=== PATIENT | male | born 1980 | race Caucasian/White ===

== ENCOUNTER 2022-09-21 09:33 | Day surgery (SDC) | payer SELFPAY ==
[2022-09-21] MEDS ORDERED: HYDROmorphone 1 MG/ML Syringe IM ONE (10:59)
[2022-09-21] MEDS ORDERED: Lactated Ringers 1,000 ML IV SCH (12:30)
[2022-09-21] MEDS ORDERED: Sodium Chloride 0.9% 20 ML SDV IV PRN (13:13)
[2022-09-21] MEDS ORDERED: Sodium Chloride 0.9% 10 ML Syringe FLUSH PRN (13:13)
[2022-09-21] MEDS ORDERED: Sodium Chloride 0.9% 2.5 ML Syringe FLUSH PRN (13:13)
[2022-09-21] MEDS ORDERED: Ondansetron 4 MG/2 ML SDV IVPUSH PRN (13:44)
[2022-09-21] MEDS ORDERED: Rocuronium Bromide 50 MG/5 ML Syringe ONE ×2 (13:44→16:02)
[2022-09-21] MEDS ORDERED: fentaNYL 50 MCG/ML SDV IVPUSH PRN (13:44)
[2022-09-21] MEDS ORDERED: Metoclopramide 10 MG/2 ML SDV IVPUSH PRN (13:44)
[2022-09-21] MEDS ORDERED: Morphine 2 MG/ML SYRINGE IVPUSH PRN (13:44)
[2022-09-21] MEDS ORDERED: Albuterol 0.083% 2.5 MG/3 ML Neb Soln NEB PRN (13:44)
[2022-09-21] MEDS ORDERED: Lidocaine 2% 5 ML SDV ONE (13:44)
[2022-09-21] MEDS ORDERED: Naloxone 0.4 MG/ML SDV IVPUSH PRN (13:44)
[2022-09-21] MEDS ORDERED: Propofol 200 MG/20 ML SDV ONE (13:44)
[2022-09-21] MEDS ORDERED: fentaNYL 100 MCG/2 ML SDV ONE (15:08)
[2022-09-21] MEDS ORDERED: Phenylephrine HCl In 0.9% NaCl 1 MG/10 ML Vial ONE (15:10)
[2022-09-21] MEDS ORDERED: Dexamethasone 4 MG/ML 5 ML MDV ONE (15:28)
[2022-09-21] MEDS ORDERED: Ondansetron 4 MG/2 ML SDV ONE (15:34)
[2022-09-21] MEDS ORDERED: Sugammadex Sodium 200 MG/2 ML VIAL ONE (15:34)
[2022-09-21] MEDS: HYDROmorphone 1 MG/ML Syringe IVPUSH PRN ×2 (16:50→17:13)
== END 2022-09-21 18:30 ==
LOC: MW.ED 09:33 → MW.MS 13:31 → MW.SDS 13:31
PROVIDERS: ATTEND Surgery
DX: T18.5XXA Foreign body in anus and rectum, initial encounter (principal); N35.919 Unspecified urethral stricture, male, unspecified site; F41.9 Anxiety disorder, unspecified; F32.A Depression, unspecified; I10 Essential (primary) hypertension; Z98.890 Other specified postprocedural states; Z87.891 Personal history of nicotine dependence; Z01.812 Encounter for preprocedural laboratory examination; Z20.822 Contact with and (suspected) exposure to COVID-19; Z91.030 Bee allergy status; Z79.899 Other long term (current) drug therapy; Z86.16 Personal history of COVID-19
CPT/HCPCS: 45307; 74018; 81001; 87635; J1100; J1170; J2405; J2704; J3010; J3490; J7120; 00811; U0002

== ENCOUNTER 2024-01-03 20:52 | Emergency (ER) | payer BC ==
[2024-01-03] MEDS: Ondansetron 4 MG/2 ML SDV IVPUSH STA (23:30)
[2024-01-03] MEDS: Sodium Chloride 0.9% 10 ML Syringe FLUSH PRN (23:30)
[2024-01-03] MEDS: Sodium Chloride 0.9% 2.5 ML Syringe FLUSH PRN (23:30)
[2024-01-03] MEDS: Morphine 4 MG/ML Syringe IVPUSH STA (23:30)
[2024-01-03 23:41] LABS: BASOPHILS ABSOLUTE AUTO 0.02 K/uL (0.00-0.20); BASOPHILS PERCENT AUTO 0.2 % (0.0-1.0); HEMOGLOBIN 12.8 g/dL (14.0-18.0); IMMATURE GRAN ABSOLUTE AUTO 0.03 K/uL (0.00-0.05); IMMATURE GRAN PERCENT AUTO 0.3 % (0.0-0.4); LYMPHOCYTES ABSOLUTE AUTO 0.91 K/uL (1.00-4.80); MEAN CORPUSCULAR HEMOGLOBIN 27.6 pg (28.0-32.0); MEAN CORPUSCULAR HGB CONC 32.8 g/dL (32.0-36.0); MEAN CORPUSCULAR VOLUME 84.2 fL (83.0-99.0); MEAN PLATELET VOLUME 10.2 fL (9.4-12.4); MONOCYTES ABSOLUTE AUTO 0.67 K/uL (0.00-0.80); MONOCYTES PERCENT AUTO 5.9 % (0.0-8.0); NEUTROPHILS ABSOLUTE AUTO 9.79 K/uL (1.80-7.70); NEUTROPHILS PERCENT AUTO 85.6 % (41.0-71.0); PLATELET COUNT,PLT 294 K/uL (150-400); RED BLOOD CELL COUNT 4.63 M/uL (4.52-5.90); WHITE BLOOD CELL COUNT,WBC 11.42 K/uL (3.9-11.3)
[2024-01-04 00:05] LABS: BILIRUBIN TOTAL 1.2 mg/dL (0.2-1.0); CALCIUM 9.3 mg/dL (8.5-10.1); CARBON DIOXIDE,CO2 23.7 mmol/L (21.0-32.0); EST CRCL DRUG DOSING (CG) 106.7 mL/min; POTASSIUM,K 3.9 mmol/L (3.5-5.1); PROTEIN TOTAL,TP 7.9 g/dL (6.4-8.2)
[2024-01-04] MEDS: HYDROmorphone 1 MG/ML Syringe IVPUSH STA (01:02)
== END 2024-01-04 02:30 ==
LOC: MW.ED 20:52
DX: T18.5XXA Foreign body in anus and rectum, initial encounter (principal); Z87.448 Personal history of other diseases of urinary system; I10 Essential (primary) hypertension; Z86.16 Personal history of COVID-19; Z91.030 Bee allergy status; Z79.899 Other long term (current) drug therapy
CPT/HCPCS: 36415; 72170; 74176; 80053; 85025; 96374; 96375; 99285; J1170; J2270; J2405; J3490

== ENCOUNTER 2024-07-22 03:55 | Emergency (ER) | payer BC ==
[2024-07-22] MEDS: diphenhydrAMINE 25 MG Cap PO ONE (04:10)
[2024-07-22] MEDS: predniSONE 20 MG Tab PO ONE (04:10)
[2024-07-22] MEDS: Famotidine 20 MG Tab PO ONE (04:11)
== END 2024-07-22 04:22 | disposition home or self-care (01) ==
LOC: MW.ED 03:55
DX: L50.9 Urticaria, unspecified (principal); I10 Essential (primary) hypertension; Z91.030 Bee allergy status; Z79.899 Other long term (current) drug therapy; Z75.8 Other problems related to medical facilities and other health care; Z86.16 Personal history of COVID-19
CPT/HCPCS: 99282; A9270; 99283

== ENCOUNTER 2024-08-01 15:46 | Emergency (ER) | payer BC ==
[2024-08-01] MEDS: Losartan 50 MG Tab PO ONE (16:12)
== END 2024-08-01 16:14 ==
LOC: MW.ED 15:46
DX: I10 Essential (primary) hypertension (principal); Z87.891 Personal history of nicotine dependence; Z79.899 Other long term (current) drug therapy; Z91.030 Bee allergy status
CPT/HCPCS: 99283; A9270; 99282